=== PATIENT | female | born 1990 | race Caucasian/White ===

== ENCOUNTER 2016-10-12 06:55 | Inpatient (IN) | payer MEDICAID ==
[2016-10-12] MEDS ORDERED: Sodium Chloride 0.9% 10 ML Syringe FLUSH PRN (07:51)
[2016-10-12] MEDS ORDERED: Nalbuphine 20 MG/1 ML Amp IVPUSH PRN (07:51)
[2016-10-12] MEDS ORDERED: Ondansetron 4 MG/2 ML SDV IVPUSH PRN ×2 (07:51→12:20)
[2016-10-12] MEDS ORDERED: Oxytocin/Lactated Ringers 10 UNIT/1,000 ML BAG IV SCH ×2 (08:00)
[2016-10-12] MEDS: Lactated Ringers 1,000 ML IV SCH ×5 (08:20→21:00)
--- NOTE | 2016-10-12 10:03 | PCM.LDHP ---
L&D History of Present Illness - General Date of Service: 10/12/16 Admit Problem/Dx: Patient Status Order with Admit Dx/Problem 10/12/16 07:51 Patient Status [ADT] Routine Admission Diagnosis/Problem Admission Diagnosis/Problem Source of Information: Patient, Other History Limitations: Reports: No Limitations - History of Present Illness Introduction:: History of present illness: 26-year-old 2 para 1001 white female with an PRACHI of 10/19/16 based on 12-3 week ultrasound presenting for induction of labor with Pitocin and artificial rupture of membranes due to increased distance from hospital. She lives approximately an hour and a half away from the hospital. 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 Had a normal spontaneous vaginal delivery at 39-4 weeks on 09/23/2013, giving to a 7 lbs 15 oz boy named Wilner after 27 hours of labor. Menses began at age 14 and occur monthly every 28 days. course: Patient is a transfer from [facility] in [place], [place]. Previously saw Dr. Linda Winchester. Established care in this clinic at 30-2 weeks. Pre- weight was 201 lbs with a current weight of 242, a gain of 41 lbs. Received TDAP August 2016. Fundal height growth has been appropriate. Laboratory testing: Blood type is A+, with a negative antibody screen. Initial labss showed a HGB of 12.8 She is rubella immune and RPR nonreactive. Pap showed ASC-US with a negative HPV. Hepatitis B surface antigen and HIV assays were both negative. Urine showed mixed oumar suggestive of contamination. Chlamydia and gonorrhea labs were both negative. 2nd trimester labs showed a HGB of 12, with a one hour GTT of 133. Third trimester group B strep screen was negative. Allergies: no known drug or food allergies Medications: 1. Fish oil 2. vitamin 3. Extended release iron tablet 4. Pepcid/Tums Past medical history: 1. H/o anxiety 2. High cholesterol Past surgical history: 1. Tonsillectomy in adolescence 2. Attached by dog at age 3 Family history: Father from leukemia complications. Mother alive and well. 5 siblings with an older sister having celiac disease. Cousin has mental retardation/autism. Denies family history of bleeding, blood clotting, anesthesia, asthma, or genital disorders in family members. Social history: Currently in a relationship. Stay's at home. Lives in [place], [place]. No usage of alcohol, tobacco, or illicit drugs. Review of systems: Skin: No rash Respiratory: No cough or shortness of breath Cardiovascular: No chest pain Breasts: No tenderness or discharge GI: No diarrhea or constipation : No dysuria Musculoskeletal: no tenderness to palpation of extremities Neurologic: Negative Physical exam: well-developed, well-nourished, and in no acute distress Skin: No rashes, warm, dry HEENT: no lymphadenopathy or thyromegaly Back: no tenderness to palpation Respiratory: clear breath sounds bilaterally Cardiovascular: normal s1 and s2, no murmurs Breast: deferred Abdomen: protuberant with Cervix: 2+/80/soft/mid/-2 Extremities: well-perfused, nontender, no edema Neurological: 2+ patellar reflexes - Related Data Allergies/Adverse Reactions: Allergies Allergy/AdvReac Type Severity Reaction Status Date / Time No Known Allergies Allergy Verified 08/04/13 14:22 Home Medications: Home Meds PNV95/Ferrous Fumarate/FA [ Tablet] 1 each PO DAILY 09/22/13 [History] Acetaminophen [Tylenol] 650 mg PO Q4H PRN #30 tablet 09/25/13 [Rx] Fish Oil/[place]-3 Fatty Acids [Fish Oil 1,000 MG] 1 gm PO DAILY 10/12/16 [History ] Pepsin [Pepsin 3,000 Digestion] 1 cap PO ASDIRECTED PRN 10/12/16 [History] Past Medical History - Past Health History Medical/Surgical History: Denies Medical/Surgical History Cardiovascular History: Reports: High Cholesterol 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: Reports: Psychiatric History: Reports: Anxiety Social & Family History - Family History Family Medical History: Noncontributory - Tobacco Use Smoking Status *Q: Never Smoker Second Hand Smoke Exposure: No - Caffeine Use Caffeine Use: Reports: Coffee, Soda - Alcohol Use Days Per Week of Alcohol Use: 0 - Recreational Drug Use Recreational Drug Use: No H&P Review of Systems - Review of Systems: Review Of Systems: See Below L&D Exam - Exam Exam: See Below - Vital Signs Vital Signs: Last Vital Signs Temp 97.9 F 10/12/16 07:51 Pulse 117 H 10/12/16 07:51 Resp 15 10/12/16 07:51 BP 141/92 H 10/12/16 07:51 Pulse Ox 98 10/12/16 07:51 Weight: 242 lb 4.8 oz - Patient Data Lab Results Last 24 hrs: Laboratory Results - last 24 hr 10/12/16 Range/Units 08:05 WBC 8.19 (3.98-10.04) K/mm3 RBC 3.90 L (3.98-5.22) M/mm3 Hgb 11.0 L (11.2-15.7) gm/L Hct 32.0 L (34.1-44.9) % MCV 82.1 (79.4-94.8) fl MCH 28.2 (25.6-32.2) pg MCHC 34.4 (32.2-35.5) g/dl RDW Std Deviation 38.6 (36.4-46.3) fL Plt Count 256 (182-369) K/mm3 MPV 9.7 (9.4-12.3) fl Neut % (Auto) 61.4 (34.0-71.1) % Lymph % (Auto) 28.3 (19.3-51.7) % [place] % (Auto) 7.3 (4.7-12.5) % Eos % (Auto) 2.6 (0.7-5.8) Baso % (Auto) 0.2 (0.1-1.2) % Neut # (Auto) 5.02 (1.56-6.13) K/mm3 Lymph # (Auto) 2.32 (1.18-3.74) K/mm3 [place] # (Auto) 0.60 H (0.24-0.36) K/mm3 Eos # (Auto) 0.21 (0.04-0.36) K/mm3 Baso # (Auto) 0.02 (0.01-0.08) K/mm3 Result Diagrams: 10/12/16 08:05 Problem List Initiated/Reviewed/Updated: Yes Orders Last 24hrs: Active Orders 24 hr Category Date Time Status Patient Status [ADT] Routine ADT 10/12/16 07:51 Active Activity as Tolerated [RC] PFP Care 10/12/16 07:51 Active Communication Order [RC] ASDIRECTED Care 10/12/16 07:51 Active Heart Tones [RC] ASDIRECTED Care 10/12/16 07:52 Active Notify Provider [RC] PFP Care 10/12/16 07:51 Active Notify Provider [RC] PRN Care 10/12/16 07:51 Active Peripheral IV Care [RC] . DIRECTED Care 10/12/16 07:52 Active Vital Signs [RC] PER UNIT ROUTINE Care 10/12/16 07:51 Active Regular Diet [DIET] Diet 10/12/16 Breakfast Active Lactated Ringers [Ringers, Lactated] 1,000 ml Med 10/12/16 08:00 Active IV ASDIRECTED Lidocaine 1% [Xylocaine 1%] Med 10/12/16 12:00 Once 50 ml INJECT ONETIME ONE Nalbuphine [Nubain] Med 10/12/16 07:51 Active 10 mg IVPUSH Q2H PRN Ondansetron [Zofran] Med 10/12/16 07:51 Active 4 mg IVPUSH Q4H PRN Oxytocin/Lactated Ringers [Pitocin in LR 10 Units/1,000 Med 10/12/16 08:00 Active ML] 10 unit in 1,000 ml IV .CONTINUOUS Oxytocin/Lactated Ringers [Pitocin in LR 10 Units/1,000 Med 10/12/16 08:00 Active ML] 10 unit in 1,000 ml IV TITRATE Sodium Chloride 0.9% [Saline Flush] Med 10/12/16 07:51 Active 10 ml FLUSH ASDIRECTED PRN Electronic Heart Tones Ext w TOCO [WOMSER] Oth 10/12/16 07:51 Ordered Routine Electronic Heart Tones Internal [WOMSER] Per Unit Oth 10/12/16 07:51 Ordered Routine Peripheral IV Insertion Adult [OM.PC] Routine Oth 10/12/16 07:51 Ordered Resuscitation Status Routine Resus Stat 10/12/16 07:51 Ordered Medication Orders Lactated Ringer's (Ringers, Lactated) 1,000 mls @ 100 mls/hr IV ASDIRECTED TEDDY [facility] Admin: 10/12/16 08:45 Dose: 100 mls/hr Infusion: 10/12/16 08:45 Dose: 100 mls/hr Admin: 10/12/16 08:20 Dose: 100 mls/hr Oxytocin/Lactated Ringer's (Pitocin In Lr 10 Units/1,000 Ml) 10 unit in 1,000 mls @ 500 mls/hr IV .CONTINUOUS TEDDY Oxytocin/Lactated Ringer's (Pitocin In Lr 10 Units/1,000 Ml) 10 unit in 1,000 mls @ 12 mls/hr IV TITRATE TEDDY; 2 MUNITS/MIN PRN Reason: Protocol Last Admin: 10/12/16 08:46 Dose: 2 munits/min, 12 mls/hr Lidocaine HCl (Xylocaine 1%) 50 ml INJECT ONETIME ONE Stop: 10/12/16 12:01 Nalbuphine HCl (Nubain) 10 mg IVPUSH Q2H PRN PRN Reason: Pain (moderate 4-6) Ondansetron HCl (Zofran) 4 mg IVPUSH Q4H PRN PRN Reason: Nausea/Vomiting Sodium Chloride (Saline Flush) 10 ml FLUSH ASDIRECTED PRN PRN Reason: Keep Vein Open Assessment/Plan Comment:: Assessment: 1. 26-year-old at 39 weeks gestation admitted for induction of labor. 2. Plans to breast feed. 3. Group B strep negative Plan: 1. Induction of labor with Pitocin 2. Patient accepting of epidural if needed
[2016-10-12] MEDS ORDERED: Lidocaine 1% 50 ML MDV INJECT ONE (12:00)
--- NOTE | 2016-10-12 12:10 | PCM.PREANE ---
Preanesthetic Assessment - Anesthesia/Transfusion/Family Hx Anesthesia History: Prior Anesthesia Without Reaction Family History of Anesthesia Reaction: No Transfusion History: No Prior Transfusion(s) Intubation History: Unknown - Review of Systems General: No Symptoms Pulmonary: No Symptoms Cardiovascular: No Symptoms Gastrointestinal: Other (Heart burn throughout ) Neurological: No Symptoms Other: Reports: None (Siatica pain that radiated to the right leg. Chronic from an injury at work. ) - Physical Assessment O2 Sat by Pulse Oximetry: 98 Respiratory Rate: 15 Vital Signs: Last Vital Signs Temp 36.6 C 10/12/16 07:51 Pulse 117 H 10/12/16 07:51 Resp 15 10/12/16 07:51 BP 141/92 H 10/12/16 07:51 Pulse Ox 98 10/12/16 07:51 Height: 1.63 m Weight: 109.905 kg Mental Status: Alert & Oriented x3 Airway Class: Mallampati = 1 Dentition: Reports: Normal Dentition Thyro-Mental Finger Breadths: 3 Mouth Opening Finger Breadths: 3 ROM/Head Extension: Full Lungs: Clear to Auscultation, Normal Respiratory Effort Cardiovascular: Regular Rate, Regular Rhythm - Lab Values: Laboratory Last Values WBC 8.19 K/mm3 (3.98-10.04) 10/12/16 08:05 RBC 3.90 M/mm3 (3.98-5.22) L 10/12/16 08:05 Hgb 11.0 gm/L (11.2-15.7) L 10/12/16 08:05 Hct 32.0 % (34.1-44.9) L 10/12/16 08:05 MCV 82.1 fl (79.4-94.8) 10/12/16 08:05 MCH 28.2 pg (25.6-32.2) 10/12/16 08:05 MCHC 34.4 g/dl (32.2-35.5) 10/12/16 08:05 RDW Std Deviation 38.6 fL (36.4-46.3) 10/12/16 08:05 Plt Count 256 K/mm3 (182-369) 10/12/16 08:05 MPV 9.7 fl (9.4-12.3) 10/12/16 08:05 Neut % (Auto) 61.4 % (34.0-71.1) 10/12/16 08:05 Lymph % (Auto) 28.3 % (19.3-51.7) 10/12/16 08:05 [place] % (Auto) 7.3 % (4.7-12.5) 10/12/16 08:05 Eos % (Auto) 2.6 (0.7-5.8) 10/12/16 08:05 Baso % (Auto) 0.2 % (0.1-1.2) 10/12/16 08:05 Neut # (Auto) 5.02 K/mm3 (1.56-6.13) 10/12/16 08:05 Lymph # (Auto) 2.32 K/mm3 (1.18-3.74) 10/12/16 08:05 [place] # (Auto) 0.60 K/mm3 (0.24-0.36) H 10/12/16 08:05 Eos # (Auto) 0.21 K/mm3 (0.04-0.36) 10/12/16 08:05 Baso # (Auto) 0.02 K/mm3 (0.01-0.08) 10/12/16 08:05 - Allergies Allergies/Adverse Reactions: Allergies Allergy/AdvReac Type Severity Reaction Status Date / Time No Known Allergies Allergy Verified 08/04/13 14:22 - Acknowledgements Anesthesia Type Planned: Epidural Pt an Appropriate Candidate for the Planned Anesthesia: Yes Alternatives and Risks of Anesthesia Discussed w Pt/Guardian: Yes Pt/Guardian Understands and Agrees with Anesthesia Plan: Yes PreAnesthesia Questionnaire - Past Health History Medical/Surgical History: Denies Medical/Surgical History Cardiovascular History: Reports: High Cholesterol 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: Psychiatric History: Reports: Anxiety - SUBSTANCE USE Smoking Status *Q: Never Smoker Second Hand Smoke Exposure: No Days Per Week of Alcohol Use: 0 Recreational Drug Use History: No - HOME MEDS Home Medications: Home Meds PNV95/Ferrous Fumarate/FA [ Tablet] 1 each PO DAILY 09/22/13 [History] Acetaminophen [Tylenol] 650 mg PO Q4H PRN #30 tablet 09/25/13 [Rx] Fish Oil/[place]-3 Fatty Acids [Fish Oil 1,000 MG] 1 gm PO DAILY 10/12/16 [History ] Pepsin [Pepsin 3,000 Digestion] 1 cap PO ASDIRECTED PRN 10/12/16 [History] - CURRENT (IN HOUSE) MEDS Current Meds: Current Medications Lactated Ringer's (Ringers, Lactated) 1,000 mls @ 100 mls/hr IV ASDIRECTED TEDDY Last Admin: 10/12/16 08:45 Dose: 100 mls/hr Oxytocin/Lactated Ringer's (Pitocin In Lr 10 Units/1,000 Ml) 10 unit in 1,000 mls @ 500 mls/hr IV .CONTINUOUS TEDDY Oxytocin/Lactated Ringer's (Pitocin In Lr 10 Units/1,000 Ml) 10 unit in 1,000 mls @ 12 mls/hr IV TITRATE TEDDY; 2 MUNITS/MIN PRN Reason: Protocol Last Titration: 10/12/16 11:06 Dose: 10 munits/min, 60 mls/hr Nalbuphine HCl (Nubain) 10 mg IVPUSH Q2H PRN PRN Reason: Pain (moderate 4-6) Ondansetron HCl (Zofran) 4 mg IVPUSH Q4H PRN PRN Reason: Nausea/Vomiting Sodium Chloride (Saline Flush) 10 ml FLUSH ASDIRECTED PRN PRN Reason: Keep Vein Open Discontinued Medications Lidocaine HCl (Xylocaine 1%) 50 ml INJECT ONETIME ONE Stop: 10/12/16 12:01
[2016-10-12] MEDS ORDERED: fentaNYL 100 MCG/2 ML SDV EPIDUR ONE (12:19)
[2016-10-12] MEDS ORDERED: diphenhydrAMINE 50 MG/ML SDV IVPUSH PRN (12:19)
[2016-10-12] MEDS ORDERED: ePHEDrine 50 MG/ML SDV IVPUSH PRN (12:20)
[2016-10-12] MEDS ORDERED: Bupivacaine/fentaNYL/NS 100 ML Bag EPIDUR SCH (12:30)
[2016-10-12] MEDS ORDERED: fentaNYL 100 MCG/2 ML SDV ONE (19:05)
[2016-10-12] MEDS ORDERED: fentaNYL 100 MCG/2 ML SDV EPIDUR PRN ×2 (19:54→19:56)
[2016-10-12] MEDS ORDERED: Bupivacaine 0.25% 10 ML SDV ONE (22:22)
--- NOTE | 2016-10-12 23:31 | PCM.SN ---
- Free Text/Narrative Note: Sherry is a 2 para 2002 white female who is admitted to labor and delivery on the a.m. of 10/12/2016 for elective induction of labor secondary to increased distance from hospital. Patient was approximately mcfp from the hospital. Patient's induction was with Pitocin and eventually with artificial rupture membranes. She made slow but steady progress to complete cervical dilation at approximately 2230 hours. She proceeded to push shortly thereafter and delivered a viable, jewell, male with Apgars of 4 and 8, length of 19.5 inches, a weight of 3390 g (7 pounds 7.6 ounces) in an occiput anterior position at 2305 hrs on 10/12/2016. There was nuchal cord 1 which when reduced over the days had ruptured. The cord was immediately clamped and baby was then delivered and taken to the warmer. Resuscitative efforts booted bagging the baby with positive pressure and with this baby responded well. Perineum was intact. Pitocin was started after the delivery the baby. Placenta delivered in a [place] presentation at 2310 hrs., appeared intact and complete. The umbilical cord had 3 vessels. Cord blood was obtained prior to the delivery of the placenta. The estimate blood loss was 200 mL. Patient plans to nurse. Condition: Good
[2016-10-13] MEDS ORDERED: Lanolin 100% Cream 7 GM Tube TOP PRN
[2016-10-13] MEDS ORDERED: Witch Hazel Medicated Pads 100/Jar TOP PRN
[2016-10-13] MEDS ORDERED: Acetaminophen 325 MG Tab PO PRN
[2016-10-13] MEDS ORDERED: Benzocaine/Menthol 20%-0.5% Spray 56 GM Canister TOP PRN
--- NOTE | 2016-10-13 06:27 | PCM.SN ---
- Free Text/Narrative Note: The patient is day 1. Doing well. Minimal lochia. Nursing without problems. Signs stable, patient is afebrile. Abdomen is flat, soft, nontender. Uterus is just below the umbilicus and soft. Legs are nontender. Assessment/plan: Was for an day 1. Normal recovery. Routine cares. Possibly home tomorrow.
[2016-10-13] MEDS: Prenatal Multivitamin with Calcium/Folic Acid/Iron Tab PO SCH (08:27)
[2016-10-13] MEDS: Ibuprofen 600 MG Tab PO PRN ×3 (08:52→20:43)
--- NOTE | 2016-10-13 08:52 | PCM48HPAN ---
Post Anesthesia Note - EVALUATION WITHIN 48HRS OF ANESTHETIC Vital Signs in Normal Range: Yes Patient Participated in Evaluation: Yes Respiratory Function Stable: Yes Airway Patent: Yes Cardiovascular Function Stable: Yes Hydration Status Stable: Yes Pain Control Satisfactory: Yes Nausea and Vomiting Control Satisfactory: Yes Mental Status Recovered: Yes
[2016-10-13] MEDS: Docusate Sodium 100 MG Cap PO PRN ×2 (14:30→23:25)
[2016-10-14] MEDS: Ibuprofen 600 MG Tab PO PRN ×2 (04:00→08:23)
[2016-10-14 06:15] VITALS: BP 121/84
[2016-10-14] MEDS: Prenatal Multivitamin with Calcium/Folic Acid/Iron Tab PO SCH (08:20)
--- NOTE | 2016-10-14 08:22 | PCM.DCSUM1 ---
Discharge Summary - Discharge Data Discharge Date: 10/14/16 Discharge Disposition: Home, Self-Care 01 Condition: Good - Patient Summary/Data Hospital Course: Sherry is a 2 para 2002 white female who is admitted to labor and delivery on the a.m. of 10/12/2016 for elective induction of labor secondary to increased distance from hospital. Patient was approximately mcfp from the hospital. Patient's induction was with Pitocin and eventually with artificial rupture membranes. She made slow but steady progress to complete cervical dilation at approximately 2230 hours. She proceeded to push shortly thereafter and delivered a viable, jewell, male with Apgars of 4 and 8, length of 19.5 inches, a weight of 3390 g (7 pounds 7.6 ounces) in an occiput anterior position at 2305 hrs on 10/12/2016. There was nuchal cord 1 which when reduced over the days had ruptured. The cord was immediately clamped and baby was then delivered and taken to the warmer. Resuscitative efforts booted bagging the baby with positive pressure and with this baby responded well. Perineum was intact. Pitocin was started after the delivery the baby. Placenta delivered in a [place] presentation at 2310 hrs., appeared intact and complete. The umbilical cord had 3 vessels. Cord blood was obtained prior to the delivery of the placenta. The estimate blood loss was 200 mL. Patient plans to nurse. Condition: Good Uncomplicated course. - Patient Instructions Diet: Usual Diet as Tolerated Activity: No Strenuous Activities Driving: May Drive Today Showering/Bathing: May Shower Wound/Incision Care: Keep Operative Site/Wound Site Clean and Dry Notify Provider of: Fever - Discharge Plan Home Medications: Home Meds PNV95/Ferrous Fumarate/FA [ Tablet] 1 each PO DAILY 09/22/13 [History] Acetaminophen [Tylenol] 650 mg PO Q4H PRN #30 tablet 09/25/13 [Rx] Fish Oil/[place]-3 Fatty Acids [Fish Oil 1,000 MG] 1 gm PO DAILY 10/12/16 [History ] Pepsin [Pepsin 3,000 Digestion] 1 cap PO ASDIRECTED PRN 10/12/16 [History] Referrals: Rasheeda Duarte MD [Physician] - - Discharge Summary/Plan Comment DC Time >30 min.: No - General Info Date of Service: 10/14/16 Functional Status: Reports: Pain Controlled - Review of Systems General: Reports: No Symptoms HEENT: Reports: No Symptoms Pulmonary: Reports: No Symptoms Cardiovascular: Reports: No Symptoms Gastrointestinal: Reports: No Symptoms Genitourinary: Reports: No Symptoms Musculoskeletal: Reports: No Symptoms Skin: Reports: No Symptoms Neurological: Reports: No Symptoms Psychiatric: Reports: No Symptoms - Patient Data Vitals - Most Recent: Last Vital Signs Temp 36.3 C 10/14/16 04:00 Pulse 80 10/14/16 04:00 Resp 13 10/14/16 04:00 BP 121/84 10/14/16 04:00 Pulse Ox 99 10/14/16 04:00 Weight - Most Recent: 109.905 kg Lab Results - Last 24 hrs: Laboratory Results - last 24 hr 10/13/16 Range/Units 22:28 WBC 10.50 H (3.98-10.04) K/mm3 RBC 3.39 L (3.98-5.22) M/mm3 Hgb 9.7 L (11.2-15.7) gm/L Hct 28.4 L (34.1-44.9) % MCV 83.8 (79.4-94.8) fl MCH 28.6 (25.6-32.2) pg MCHC 34.2 (32.2-35.5) g/dl RDW Std Deviation 39.0 (36.4-46.3) fL Plt Count 214 (182-369) K/mm3 MPV 9.5 (9.4-12.3) fl Med Orders - Current: Current Medications Acetaminophen (Tylenol) 650 mg PO Q4H PRN PRN Reason: mild pain or fever Benzocaine/Menthol (Dermoplast Pain Relief [place]) 0 gm TOP ASDIRECTED PRN PRN Reason: Perineal Comfort Measure Docusate Sodium (Colace) 100 mg PO BID PRN PRN Reason: Constipation Last Admin: 10/13/16 23:25 Dose: 100 mg Emollient Ointment (Lansinoh Hpa) 0 gm TOP ASDIRECTED PRN PRN Reason: Sore Nipples Ibuprofen (Motrin) 600 mg PO Q4H PRN PRN Reason: Mild pain or fever Last Admin: 10/14/16 04:00 Dose: 600 mg Prenat Multivit/Trucksmith/Iron/Folic Ac ( Plus Iron) 1 each PO DAILY TEDDY Last Admin: 10/13/16 08:27 Dose: 1 each Witjemma Olivaresel (Tucks) 1 pad TOP ASDIRECTED PRN PRN Reason: Hemorrhoid pain Discontinued Medications Diphenhydramine HCl (Benadryl) 25 mg IVPUSH Q6H PRN PRN Reason: Pruritis Ephedrine Sulfate (Ephedrine Sulfate) 5 mg IVPUSH ASDIRECTED PRN PRN Reason: Hypotension Fentanyl (Sublimaze) 100 mcg EPIDUR ONETIME ONE Stop: 10/12/16 12:20 Last Admin: 10/12/16 19:24 Dose: 100 mcg Fentanyl (Sublimaze) Confirm Administered Dose 100 mcg .ROUTE .STK-MED ONE Stop: 10/12/16 19:06 Last Admin: 10/13/16 05:45 Dose: Not Given Fentanyl (Sublimaze) 100 mcg EPIDUR Q3H PRN PRN Reason: Pain Fentanyl (Sublimaze) 100 mcg EPIDUR Q3H PRN PRN Reason: Pain Fentanyl/Bupivacaine HCl (Fentanyl/Bupivacaine/Ns 2 Mcg-0.125% 100 Ml) 100 ml EPIDUR ASDIRECTED TEDDY Last Admin: 10/12/16 19:24 Dose: 100 ml Lactated Ringer's (Ringers, Lactated) 1,000 mls @ 100 mls/hr IV ASDIRECTED TEDDY Last Admin: 10/12/16 21:00 Dose: 100 mls/hr Oxytocin/Lactated Ringer's (Pitocin In Lr 10 Units/1,000 Ml) 10 unit in 1,000 mls @ 500 mls/hr IV .CONTINUOUS TEDDY Last Admin: 10/12/16 23:05 Dose: 500 mls/hr Oxytocin/Lactated Ringer's (Pitocin In Lr 10 Units/1,000 Ml) 10 unit in 1,000 mls @ 12 mls/hr IV TITRATE TEDDY; 2 MUNITS/MIN PRN Reason: Protocol Last Titration: 10/12/16 14:13 Dose: 20 munits/min, 120 mls/hr Oxytocin 20 unit/ Lactated (Ringer's) 1,002 mls @ 60.12 mls/hr IV TITRATE ONE; 20 MUNITS/MIN PRN Reason: Protocol Stop: 10/13/16 07:12 Last Titration: 10/12/16 21:07 Dose: 25 munits/min, 75.15 mls/hr Lidocaine HCl (Xylocaine 1%) 50 ml INJECT ONETIME ONE Stop: 10/12/16 12:01 Last Admin: 10/13/16 05:45 Dose: Not Given Nalbuphine HCl (Nubain) 10 mg IVPUSH Q2H PRN PRN Reason: Pain (moderate 4-6) Ondansetron HCl (Zofran) 4 mg IVPUSH Q4H PRN PRN Reason: Nausea/Vomiting Ondansetron HCl (Zofran) 4 mg IVPUSH ONETIME PRN PRN Reason: Nausea/Vomiting Sodium Chloride (Saline Flush) 10 ml FLUSH ASDIRECTED PRN PRN Reason: Keep Vein Open - Exam General: Reports: Alert, Oriented HEENT: Reports: Pupils Equal, Pupils Reactive, EOMI, Mucous Membr. Moist/[place]: Reports: Supple Lungs: Reports: Clear to Auscultation, Normal Respiratory Effort Cardiovascular: Reports: Regular Rate, Regular Rhythm GI/Abdominal Exam: Normal Bowel Sounds, Soft, Non-Tender, No Organomegaly, No Distention, No Abnormal Bruit, No Mass, Pelvis Stable Back Exam: Reports: Normal Inspection, Full Range of Motion Extremities: Normal Inspection, Normal Range of Motion, Non-Tender, No Pedal Edema, Normal Capillary Refill Skin: Reports: Warm, Dry, Intact Wound/Incisions: Reports: Healing Well Neurological: Reports: No New Focal Deficit Psy/Mental Status: Reports: Alert, Normal Affect, Normal Mood *Q Meaningful Use (DIS) - VTE *Q VTE Criteria *Q: - Stroke *Q Stroke Criteria *Q: - AMI *Q AMI Criteria *Q:
== END 2016-10-14 12:15 | disposition home or self-care (01) | DRG 775 ==
LOC: JD.OB 06:55 → OBSVTOIN 23:05
PROVIDERS: ADMIT Obstetrics & Gynecology; ATTEND Obstetrics & Gynecology
PROC: 10E0XZZ Delivery of Products of Conception, External Approach (ICD-10-PCS; principal; 2016-10-12)
PROC: 3E033VJ Introduction of Other Hormone into Peripheral Vein, Percutaneous Approach (ICD-10-PCS; 2016-10-12)
PROC: 10907ZC Drainage of Amniotic Fluid, Therapeutic from Products of Conception, Via Natural or Artificial Opening (ICD-10-PCS; 2016-10-12)
PROC: 00HU33Z Insertion of Infusion Device into Spinal Canal, Percutaneous Approach (ICD-10-PCS; 2016-10-12)
PROC: 3E0R3CZ (ICD-10-PCS; 2016-10-12)
DX: O69.81X0 Labor and delivery complicated by cord around neck, without compression, not applicable or unspecified (principal); Z3A.39 39 weeks gestation of pregnancy; Z37.0 Single live birth
CPT/HCPCS: 36415; 85025; 85027; A9270-GY; J2590; J3010; J7120